=== PATIENT | female | born 1990 | race Caucasian/White ===

== ENCOUNTER 2019-04-24 11:38 | Emergency (ER) | payer SELFPAY ==
[~2019-04-24] VITALS: Ht 170.2 cm; Wt 63.6 kg
[2019-04-24] MEDS ORDERED: CEPH-572 PO (12:15)
[2019-04-24] MEDS ORDERED: SULF1TAB49 PO (12:15)
[2019-04-24 12:25] VITALS: BP 121/47
== END 2019-04-24 12:26 | disposition home or self-care (01) ==
LOC: ER 11:39
DX: L03.115 Cellulitis of right lower limb (principal); Z79.2 Long term (current) use of antibiotics
CPT/HCPCS: 99283; 99284

== ENCOUNTER 2019-04-25 12:39 | Emergency (ER) | payer SELFPAY ==
[~2019-04-25] VITALS: Ht 170.2 cm; Wt 62.3 kg
[~2019-04-25 12:39] MED LIST: CEPH-572 PO; SULF1TAB49 PO
[2019-04-25 12:42] VITALS: BP 133/78
== END 2019-04-25 13:50 | disposition home or self-care (01) ==
LOC: ER 12:39
DX: R21 Rash and other nonspecific skin eruption (principal); Z79.2 Long term (current) use of antibiotics
CPT/HCPCS: 99281

== ENCOUNTER 2019-07-02 11:07 | Emergency (ER) | payer BC ==
[~2019-07-02] VITALS: Ht 170.2 cm; Wt 63.2 kg
[2019-07-02 11:34] VITALS: BP 114/64
[2019-07-02] MEDS ORDERED: mupirocin 2% ointment 22GM TP STA (12:53)
[2019-07-02] MEDS ORDERED: CEPH-571 PO (12:54)
== END 2019-07-02 13:11 | disposition home or self-care (01) ==
LOC: ER 11:07
DX: S80.862A Insect bite (nonvenomous), left lower leg, initial encounter (principal); S80.861A Insect bite (nonvenomous), right lower leg, initial encounter; Z79.899 Other long term (current) drug therapy; W57.XXXA Bitten or stung by nonvenomous insect and other nonvenomous arthropods, initial encounter; Y93.89 Activity, other specified; Y92.89 Other specified places as the place of occurrence of the external cause; Y99.8 Other external cause status
CPT/HCPCS: 99283

== ENCOUNTER 2020-05-18 18:06 | Emergency (ER) | payer BC ==
[~2020-05-18] VITALS: Ht 170.2 cm; Wt 58.0 kg
[~2020-05-18 18:06] MED LIST changes: +CEPH-571 PO; -CEPH-572 PO; -SULF1TAB49 PO
[2020-05-18 18:10] VITALS: BP 125/68
[2020-05-18] MEDS ORDERED: dexamethasone sod phosphate 10mg/ml inj PO STA (18:36)
[2020-05-18] MEDS ORDERED: PENI500T2 PO (18:53)
== END 2020-05-18 19:20 | disposition home or self-care (01) ==
LOC: ER 18:06
DX: J02.9 Acute pharyngitis, unspecified (principal); Z20.828 Contact with and (suspected) exposure to other viral communicable diseases; Z79.899 Other long term (current) drug therapy
CPT/HCPCS: 36415; 87081; 87635; 87880; 99283; J1100

== ENCOUNTER 2021-01-26 14:21 | Emergency (ER) | payer BC ==
[~2021-01-26] VITALS: Ht 170.2 cm; Wt 60.9 kg
[2021-01-26 14:33] VITALS: BP 114/65
[2021-01-26 15:16] LABS: URINE HCG NEGATIVE (NEG)
[2021-01-26 15:17] LABS: CLARITY,URINE SLIGHTLY CLOUDY (Clear); COLOR,URINE YELLOW (Yellow); GLUCOSE, URINE NEGATIVE (Neg); KETONES,URINE TRACE mg/dl (Neg); LEUKOCYTE ESTERASE ,URINE MODERATE (Neg); NITRITES, URINE NEGATIVE (Neg); OCCULT BLOOD,URINE NEGATIVE (Neg); PH,URINE 7.5 (4.8-8.0); PROTEIN,URINE 30 mg/dl (Neg)
[2021-01-26 15:23] LABS: UA COLLECTION TYPE CLN CATCH MIDSTREAM
[2021-01-26 15:26] LABS: BACTERIA,URINE 2+ /HPF (Neg); MUCUS STRANDS FEW /LPF (Neg); RBC,URINE 0-2 /HPF (0-2); SQUAMOUS EPITHELIAL CELL,UR MANY /LPF (FEW)
[2021-01-26] MEDS ORDERED: FLUC150T PO (16:04)
[2021-01-26] MEDS ORDERED: fluconazole 150mg tablet PO ONE (16:05)
== END 2021-01-26 16:18 | disposition home or self-care (01) ==
LOC: ER 14:22
DX: B37.3 Candidiasis of vulva and vagina (principal); M54.5 Low back pain; R11.0 Nausea; R10.30 Lower abdominal pain, unspecified; R10.2 Pelvic and perineal pain; N89.8 Other specified noninflammatory disorders of vagina; R30.0 Dysuria; F17.200 Nicotine dependence, unspecified, uncomplicated; Z79.2 Long term (current) use of antibiotics
CPT/HCPCS: 81001; 81025; 87210; 99283; Q0112